=== PATIENT | female | born 1975 | race African-American/Black ===

== ENCOUNTER 2018-05-23 17:52 | Emergency (ER) | payer SELFPAY ==
[~2018-05-23] VITALS: Ht 157.5 cm; Wt 94.1 kg
[2018-05-23] MEDS ORDERED: ZITHROMAX Z-PA250 MG PO (21:29)
[2018-05-23] MEDS ORDERED: MOTRIN600 MG PO (21:29)
[2018-05-23 22:22] VITALS: BP 122/79
== END 2018-05-23 22:24 | disposition home or self-care (01) ==
LOC: RME 17:52 → EME 17:52 → RME 22:24
DX: J01.90 Acute sinusitis, unspecified (principal)
CPT/HCPCS: 99281; 99284